=== PATIENT | male | born 1990 | race African-American/Black ===

== ENCOUNTER 2024-05-21 10:55 | Inpatient (IN) | payer OTHER ==
[2024-05-21 11:15] VITALS: BMI 34.8
[2024-05-21] MEDS ORDERED: ALBUTEROL SO4 HFA INHALER IH PRN (11:29)
[2024-05-21] MEDS ORDERED: DICYCLOMINE HCL 10 MG CAPSULE PO PRN (11:30)
[2024-05-21] MEDS ORDERED: MAG HYDROX/AL HYDROX/SIMETH 30 ML UNIT-DOSE CUP PO PRN (11:30)
[2024-05-21] MEDS ORDERED: ACETAMINOPHEN 325 MG TABLET (FP) PO PRN (11:30)
[2024-05-21] MEDS ORDERED: LOPERAMIDE HCL 2 MG CAPSULE PO PRN (11:30)
[2024-05-21] MEDS ORDERED: MAGNESIUM HYDROX 2400MG/30ML ORAL SUSPENSION 30 ML CUP PO PRN (11:30)
[2024-05-21] MEDS ORDERED: BISMUTH SUBSALICYLATE 524 MG/30 ML PO PRN (11:30)
[2024-05-21] MEDS ORDERED: POLYETHYLENE GLYCOL (HEALTHYLAX) 3350 17 GM PACKET PO PRN (11:30)
[2024-05-21] MEDS ORDERED: BENZOCAINE/MENTHOL (CHLORASEPTIC ) LOZENGE MM PRN (11:30)
[2024-05-21] MEDS ORDERED: NALOXONE (NARCAN) HCL 4 MG/0.1 ML SPRAY NS PRN (11:30)
[2024-05-21] MEDS ORDERED: IBUPROFEN 400 MG TABLET (FP) PO PRN (11:30)
[2024-05-21] MEDS ORDERED: BENZONATATE 200 MG CAPSULE PO PRN (11:30)
[2024-05-21] MEDS ORDERED: guaiFENesin 600 MG TABLET.ER (FP) PO PRN (11:30)
[2024-05-21] MEDS ORDERED: ONDANSETRON *ODT* 4 MG TABLET SL PRN (11:30)
[2024-05-21] MEDS ORDERED: P-EPHED 60MG/TRIPROLIDI 2.5MG TABLET PO PRN (11:32)
[2024-05-21] MEDS ORDERED: BUPRENORPHINE/NALOXONE 4 MG/1 MG FILM PACKET ONE (11:47)
[2024-05-21] MEDS: BUPRENORPHINE/NALOXONE 4 MG/1 MG FILM PACKET SL SCH (11:49)
[2024-05-21] MEDS: METHOCARBAMOL 500 MG TABLET PO PRN (12:40)
[2024-05-21] MEDS: hydrOXYzine PAMOATE 25 MG CAPSULE (FP) PO PRN (12:40)
[2024-05-21] MEDS: NICOTINE POLACRILEX 2 MG GUM BUC PRN (13:26)
[2024-05-21] MEDS: diazePAM 5 MG TABLET PO PRN (13:41)
[2024-05-21] MEDS: THIAMINE 100 MG TABLET PO SCH (22:16)
[2024-05-21] MEDS: MELATONIN 5 MG TABLETS PO SCH (22:16)
[2024-05-22] MEDS: BUPRENORPHINE/NALOXONE 8 MG/2 MG FILM PACKET SL ONE (05:32)
[2024-05-22] MEDS: PRENATAL VITAMINS W/ FOLIC ACID TABLET (FP) PO SCH (10:10)
[2024-05-22 11:21] LABS: HEMATOCRIT 41.1 % (35.4-49); HEMOGLOBIN 14.3 GM/dL (11.7-16.9); MCH 30.9 pg (25.7-33.7); MCHC 34.7 g/dl (32.0-35.9); MEAN CELL VOLUME 89.1 fl (80-96); PLATELET COUNT 250 10^3/uL (134-434); RBC 4.62 M/mm3 (4.00-5.60); RDW 13.8 % (11.9-15.9); WHITE BLOOD COUNT 6.4 K/mm3 (4.0-10.0)
[2024-05-22 12:28] LABS: POTASSIUM 4.4 mmol/L (3.5-5.1)
[2024-05-22 12:36] LABS: ALBUMIN 3.8 g/dl (3.4-5.0); BLOOD UREA NITROGEN 9.3 mg/dL (7-18)
[2024-05-22 12:37] LABS: BILIRUBIN,TOTAL 0.5 mg/dL (0.2-1)
[2024-05-22 12:39] LABS: CREATININE 0.9 mg/dL (0.55-1.3); TOT PROT 7.2 g/dl (6.4-8.2)
[2024-05-22] MEDS: SUVOREXANT 10 MG TABLET PO PRN (22:23)
[2024-05-23] MEDS: BUPRENORPHINE/NALOXONE 12 MG-3 MG SL FILM PACKET SL ONE (05:25)
[2024-05-23] MEDS: IBUPROFEN 600 MG TABLET (FP) PO PRN (08:09)
[2024-05-23] MEDS: diazePAM 5 MG TABLET PO PRN (13:13)
[2024-05-23] MEDS: NICOTINE POLACRILEX 2 MG LOZENGE BC PRN (17:51)
[2024-05-24] MEDS: BUPRENORPHINE/NALOXONE 8 MG/2 MG FILM PACKET SL SCH (05:31)
[2024-05-24 06:13] VITALS: RESP 16
[2024-05-24 09:12] VITALS: BP 124/85; PULSE 65; TEMP 98.9
[2024-05-24] MEDS ORDERED: BUPRENORPHINE/NALOXONE 4 MG/1 MG FILM PACKET SL ONE (10:00)
[2024-05-24] MEDS ORDERED: BUPRENORPHINE/NALOXONE 12 MG-3 MG SL FILM PACKET SL ONE (10:00)
== END 2024-05-24 12:46 | disposition other institution (70) | DRG 773 ==
LOC: YASAS 10:55 → Y6N 11:54
PROVIDERS: ADMIT Neuromusculoskeletal Medicine & OMM; ATTEND Allergy & Immunology
PROC: HZ2ZZZZ Detoxification Services for Substance Abuse Treatment (ICD-10-PCS; principal; 2024-05-21)
DX: F11.23 Opioid dependence with withdrawal (principal); F17.210 Nicotine dependence, cigarettes, uncomplicated; G47.00 Insomnia, unspecified; J45.20 Mild intermittent asthma, uncomplicated
CPT/HCPCS: 36415; 80053; 80305; 80307; 85027; 86780; 87811; 93005; 93010